=== PATIENT | female | born 1935 | race Caucasian/White ===

== ENCOUNTER 2017-12-21 04:30 | Emergency (ER) | payer BC ==
[~2017-12-21] VITALS: Ht 160 cm; Wt 59.0 kg
[2017-12-21] MEDS ORDERED: SYNTHROID75 MCG (04:38)
[2017-12-21] MEDS ORDERED: PRILOSEC OTC20 MG (04:39)
[2017-12-21] MEDS ORDERED: DULERA 100 MCG/13 GM (04:39)
[2017-12-21] MEDS ORDERED: ASA81 MG (04:39)
[2017-12-21] MEDS ORDERED: AMLODIPINE BESYL5 MG (04:40)
[2017-12-21] MEDS ORDERED: SKELAXIN800 MG PO (09:40)
[2017-12-21] MEDS ORDERED: CELEBREX100 MG PO (09:40)
== END 2017-12-21 09:49 | disposition home or self-care (01) ==
LOC: ER 04:30
DX: S20.212A Contusion of left front wall of thorax, initial encounter (principal); S20.211A Contusion of right front wall of thorax, initial encounter; W18.39XA Other fall on same level, initial encounter; Y93.89 Activity, other specified; Y92.59 Other trade areas as the place of occurrence of the external cause; Y99.8 Other external cause status